=== PATIENT | female | born 1965 | race Caucasian/White ===

== ENCOUNTER 2017-07-26 18:31 | Emergency (ER) | payer BC, OTHER ==
[~2017-07-26 18:31] MED LIST: ASPI-183 PO; LORA0.5T PO; METF500T PO
[2017-07-26] MEDS ORDERED: oxyCODONE/ACETAMINOPHEN 5 MG/325 MG TAB PO ONE (19:00)
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
[2017-07-26 20:16] VITALS: BP 120/69; PULSE 73; RESP 17; TEMP 98.4; O2SAT 100
[2017-07-26] MEDS ORDERED: CYCL10TA PO (20:19)
== END 2017-07-26 20:50 | disposition home or self-care (01) ==
LOC: NEPE 18:31
DX: T14.8XXA Other injury of unspecified body region, initial encounter (principal); M25.511 Pain in right shoulder; M25.531 Pain in right wrist; M25.561 Pain in right knee; M54.2 Cervicalgia; E11.9 Type 2 diabetes mellitus without complications; V49.49XA Driver injured in collision with other motor vehicles in traffic accident, initial encounter; Y92.410 Unspecified street and highway as the place of occurrence of the external cause; Z72.0 Tobacco use; Z79.84 Long term (current) use of oral hypoglycemic drugs; Z87.442 Personal history of urinary calculi; Z88.2 Allergy status to sulfonamides
CPT/HCPCS: 70450; 71045; 72125; 73030; 73110; 73564